=== PATIENT | male | born 1980 | race Caucasian/White ===

== ENCOUNTER → 2025-03-29 | Outpatient (CLI) | payer MEDICAID, SELFPAY ==
--- NOTE | 2025-03-29 11:16 | RAD_ITS ---
PROCEDURE: KNEE 4 OR MORE VIEWS 03/29/2025 REASON FOR EXAM: Chronic right knee pain. TECHNIQUE: Four views of the right knee were obtained. COMPARISON: None. FINDINGS: There is no evidence of fracture or dislocation. There is no knee joint effusion. The patellofemoral joint and the medial and lateral joint space compartments of the knee appear unremarkable. There is enthesopathy of the patella. The periarticular soft tissues are normal. RAD/Knee 4 or More Views IMPRESSION: No evidence of fracture or significant arthropathy. Enthesopathy of the patell a. Reading Location: [id number]
--- NOTE | 2025-03-29 11:16 | RAD_ITS ---
PROCEDURE: HIP, UNI W/ PELVIS 2-3 VIEWS 03/29/2025 REASON FOR EXAM: RIGHT HIP PAIN TECHNIQUE: AP view of the pelvis and AP and lateral views of the right hip were obtained. COMPARISON: None. FINDINGS: The bony pelvis is intact. There is no significant degenerative disc disease of the visualized lumbar spine. The SI joints appear normal. The soft tissues of the pelvis are unremarkable. The left hip appears unremarkable. Two views of the right hip demonstrate no evidence of fracture or dislocation. The hip joint space is preserved. There are no soft tissue abnormalities. RAD/HIP, UNI W/ Pelvis 2-3 Views IMPRESSION: Normal pelvis and right hip. Reading Location: [id number]
[2025-03-29 12:37] LABS: Absolute Lymphocyte Count 2.19 X10^3/uL (0.83-4.51); Absolute Neutrophil Count 6.2 X10^3/uL (2.0-7.7); Basophil# 0.04 X10^3/uL; Basophil% 0.4 % (0-1); Eosinophil# 0.22 X10^3/uL; Eosinophils% 2.4 % (0-5); Hematocrit 52.3 % (40-54); Hemoglobin 17.5 g/dL (13.0-16.5); Lymphocyte # 2.19 X10^3/ul (0.83-4.51); Lymphocyte % 23.8 % (19-41); Mean Corp Hgb Conc 33.5 g/dL (32-36); Mean Corpuscular Hgb 28.6 pg (27.0-32.0); Mean Corpuscular Volume 85.6 fL (80-94); Mean Platelet Vol. 10.1 fl (6.2-12.0); Monocyte% 5.4 % (0-10); NRBC Flagged by Analyzer 0 % (0-5); Neutrophil % 67.5 % (47-70); Platelet Count 263 K/mm3 (150-450); RBC Distribution Width CV 13.5 % (11.6-14.6); RBC Distribution Width SD 41.6 fl (35.1-43.9); Red Blood Count 6.11 M/mm3 (4.6-6.2); White Blood Count 9.2 K/mm3 (4.4-11.0)
[2025-03-29 13:22] LABS: Hemoglobin A1c 5.9 % (<=5.6)
[2025-03-29 15:54] LABS: ALB/GLOB Ratio 0.1 RATIO (0.9-2.4); AST(SGOT) 28 U/L (<=37); Alanine Aminotransfer ALT/SGPT 36 U/L (<=46); Alkaline Phosphatase 64 U/L (40-129); Anion Gap 11 (5-15); BUN 13 mg/dL (4-19); BUN/Creat Ratio 15.3 RATIO (10-20); Calcium,Total 8.9 mg/dL (7.6-11.0); Chloride 103 mmol/L (98-108); Cholesterol 96 mg/dL (<=200); Creatinine, Serum 0.87 mg/dL (0.70-1.20); EST Glomerular Filtration Rate 108 (>60); Globulin 6.7 g/dL (2.2-4.2); Glucose 100 mg/dL (70-99); High Density Lipoprotein 35 mg/dL; Low Density Lipoprotein Calc. 46 mg/dL; Protein, Total 7.2 g/dL (5.9-8.4); Sodium Level 139 mmol/L (133-145); Total Bilirubin 0.75 mg/dL (0.00-1.30); Triglycerides 70 mg/dL; Very Low Density Lipoprotein 14 mg/dL (5-40); cholesterol:hdl ratio screen 2.71
[2025-03-29 16:17] LABS: Albumin, Serum 4.4 g/dL (3.5-5.0)
[2025-03-31 09:09] LABS: Lyme IGG CIA Positive (Negative); Lyme IGM CIA Negative (Negative); Lyme Scn Total Ab w/Rflx Positive (Negative)
== END | disposition home or self-care (01) ==
LOC: MTLAB 11:14
PROVIDERS: PCP Family Medicine; Referring Provider Family Medicine; Visit Provider Family Medicine
DX: Z00.00 Encounter for general adult medical examination without abnormal findings (principal); A69.23 Arthritis due to Lyme disease; M25.551 Pain in right hip; M25.561 Pain in right knee; Z13.1 Encounter for screening for diabetes mellitus; Z13.220 Encounter for screening for lipoid disorders
CPT/HCPCS: 36415; 73502; 73564; 80053; 80061; 83036; 85025; 86618